=== PATIENT | male | born 1960 | race Caucasian/White ===

== ENCOUNTER 2017-06-16 08:56 | Day surgery (SDC) | payer OTHER ==
[~2017-06-16] VITALS: Ht 190.5 cm; Wt 93.1 kg
[~2017-06-16 08:56] MED LIST: ALBU90OI61; Depo-Testos200 MG/ML; MORP30ER PO; Omeprazole20 M1 PO; Symbicort 16010.2 GM; XYLOCAINE TOP
[2017-06-16] MEDS ORDERED: PANT40 PO (09:15)
[2017-12-12] MEDS ORDERED: PARO20 PO (13:58)
[2017-12-12] MEDS ORDERED: ALBU90OI INH (13:58)
[2017-12-12] MEDS ORDERED: Mobic7.5 MG PO (13:58)
== END 2017-06-16 11:03 | disposition home or self-care (01) ==
LOC: ORSCSDS 08:56
PROVIDERS: Internal Medicine Gastroenterology
PROC: 0DB68ZX Excision of Stomach, Via Natural or Artificial Opening Endoscopic, Diagnostic (ICD-10-PCS; principal; 2017-06-16 10:15)
PROC: 0DB58ZX Excision of Esophagus, Via Natural or Artificial Opening Endoscopic, Diagnostic (ICD-10-PCS; principal; 2017-06-16 10:15)
DX: K20.0 Eosinophilic esophagitis (principal); K22.10 Ulcer of esophagus without bleeding; K26.9 Duodenal ulcer, unspecified as acute or chronic, without hemorrhage or perforation; F17.220 Nicotine dependence, chewing tobacco, uncomplicated; J45.909 Unspecified asthma, uncomplicated; Z79.899 Other long term (current) drug therapy
CPT/HCPCS: 88305; 88312; 88341; 88342

== ENCOUNTER 2018-08-24 11:14 | Emergency (ER) | payer OTHER ==
[~2018-08-24] VITALS: Ht 182.9 cm; Wt 95.2 kg
[~2018-08-24 11:14] MED LIST changes: -ALBU90OI6 INH; -Augmentin 500-1 EACH PO; -BUSP15 PO; -DESL5 PO; -GABA300 PO; -PARO10 PO; -PARO30 PO; -Ventolin5 MG/1 ML INH
[2018-08-24 11:43] LABS: BASOPHILS ABSOLUTE AUTO 0.04 K/mm3 (0.00-0.23); BASOPHILS PERCENT AUTO 0 % (0-2); EOSINOPHILS ABSOLUTE AUTO 0.18 K/mm3 (0.00-0.68); EOSINOPHILS PERCENT AUTO 2 % (0-6); Hematocrit 34.9 % (37.0-53.0); Hemoglobin 11.4 g/dL (13.5-17.5); IMMATURE GRAN ABSOLUTE AUTO 0.03 K/mm3 (0.00-0.10); IMMATURE GRAN PERCENT AUTO 0 % (0-1); LYMPHOCYTES ABSOLUTE AUTO 0.66 K/mm3 (0.84-5.20); LYMPHOCYTES PERCENT AUTO 6 % (21-46); MONOCYTES ABSOLUTE AUTO 0.77 K/mm3 (0.16-1.47); MONOCYTES PERCENT AUTO 7 % (4-13); Mean Corpuscular HGB Conc 32.7 g/dL (31.5-36.5); Mean Corpuscular Volume 92 fL (80-100); Mean Platelet Volume 9.8 fL (9.1-12.4); NEUTROPHILS ABSOLUTE AUTO 9.98 K/mm3 (1.96-9.15); NEUTROPHILS PERCENT AUTO 86 % (41-73); Platelet Count 183 K/mm3 (150-400); RDW Standard Deviation 47.2 fL (35.1-46.3); White Blood Cell Count 11.66 K/mm3 (4.00-11.30)
[2018-08-24 12:09] LABS: Alanine Aminotransfer (ALT/SGP 29 U/L (12-78); Albumin, Blood 3.1 g/dL (3.4-5.0); Albumin/Globulin Ratio 0.9 (0.8-1.8); Alk Phos 62 U/L (50-136); Anion Gap 7 mmol/L (6-16); Aspartate Aminotrans (AST/SGOT 17 U/L (12-37); Bilirubin, Total 0.3 mg/dL (0.1-1.0); Blood Urea Nitrogen 29 mg/dL (8-24); Bun/Creatinine Ratio 26.1 (12.0-20.0); CO2, Blood 26 mmol/L (21-32); Calcium, Blood 8.2 mg/dL (8.5-10.1); Chloride, Blood 107 mmol/L (98-108); Creatinine, Blood 1.11 mg/dL (0.60-1.20); Globulin, Blood 3.4 g/dL (2.2-4.0); Glomerular Filtration Rate >60 (60-); Glucose, Blood 141 mg/dL (70-99); Potassium, Blood 4.6 mmol/L (3.5-5.5); Sodium, Blood 140 mmol/L (136-145); Total Protein, Blood 6.5 g/dL (6.4-8.2)
[2018-08-24] MEDS ORDERED: ALBU90OI6 INH (12:40)
[2018-08-24] MEDS ORDERED: Augmentin 500-1 EACH PO (12:40)
[2018-08-24] MEDS ORDERED: Ventolin5 MG/1 ML INH (12:46)
[2018-08-24] MEDS ORDERED: PARO10 PO (12:47)
[2018-08-24] MEDS ORDERED: BUSP15 PO (12:47)
[2018-08-24] MEDS ORDERED: GABA300 PO (12:48)
[2018-08-24] MEDS ORDERED: PARO30 PO (12:48)
[2018-08-24] MEDS ORDERED: PANT40 PO (12:48)
[2018-08-24] MEDS ORDERED: DESL5 PO (12:49)
== END 2018-08-24 13:00 | disposition home or self-care (01) ==
LOC: ER 11:14
PROVIDERS: Emergency Medicine
DX: J18.9 Pneumonia, unspecified organism (principal); Z88.5 Allergy status to narcotic agent; Z88.8 Allergy status to other drugs, medicaments and biological substances; Z79.899 Other long term (current) drug therapy; J45.909 Unspecified asthma, uncomplicated
CPT/HCPCS: 36415; 71046; 80053; 83605; 85025; 96374; 99284-25; J1885; J7030

== ENCOUNTER → 2018-08-24 | Outpatient (CLI) | payer OTHER ==
[~2018-08-24] MED LIST changes: +ALBU90OI INH; +ALBU90OI6 INH; +Augmentin 500-1 EACH PO; +BUSP15 PO; +DESL5 PO; +GABA300 PO; +Mobic7.5 MG PO; +PANT40 PO; +PARO10 PO; +PARO20 PO; +PARO30 PO; +Ventolin5 MG/1 ML INH
[2018-08-24 11:24] LABS: BASOPHILS ABSOLUTE AUTO 0.05 K/mm3 (0.00-0.23); BASOPHILS PERCENT AUTO 1 % (0-2); EOSINOPHILS ABSOLUTE AUTO 0.17 K/mm3 (0.00-0.68); EOSINOPHILS PERCENT AUTO 2 % (0-6); Hematocrit 37.4 % (37.0-53.0); IMMATURE GRAN ABSOLUTE AUTO 0.04 K/mm3 (0.00-0.10); IMMATURE GRAN PERCENT AUTO 0 % (0-1); LYMPHOCYTES ABSOLUTE AUTO 0.73 K/mm3 (0.84-5.20); LYMPHOCYTES PERCENT AUTO 7 % (21-46); MONOCYTES ABSOLUTE AUTO 0.58 K/mm3 (0.16-1.47); MONOCYTES PERCENT AUTO 5 % (4-13); Mean Corpuscular HGB 29.6 pg (26.0-34.0); Mean Corpuscular HGB Conc 32.1 g/dL (31.5-36.5); Mean Corpuscular Volume 92 fL (80-100); NEUTROPHILS ABSOLUTE AUTO 9.48 K/mm3 (1.96-9.15); NEUTROPHILS PERCENT AUTO 86 % (41-73); Platelet Count 216 K/mm3 (150-400); RDW Coefficient Variation 13.8 % (11.7-14.2); RDW Standard Deviation 46.8 fL (35.1-46.3); Red Blood Cell Count 4.06 M/mm3 (4.30-5.90); White Blood Cell Count 11.05 K/mm3 (4.00-11.30)
[2018-08-24 11:27] LABS: Alanine Aminotransfer (ALT/SGP 30 U/L (12-78); Albumin, Blood 3.3 g/dL (3.4-5.0); Albumin/Globulin Ratio 0.9 (0.8-1.8); Alk Phos 65 U/L (50-136); Anion Gap 3 mmol/L (6-16); Aspartate Aminotrans (AST/SGOT 23 U/L (12-37); Bilirubin, Direct <0.1 mg/dL (0.0-0.3); Bilirubin, Indirect Unable to Calculate mg/dL (0.1-0.7); Bilirubin, Total 0.3 mg/dL (0.1-1.0); Blood Urea Nitrogen 28 mg/dL (8-24); Bun/Creatinine Ratio 23.5 (12.0-20.0); CO2, Blood 31 mmol/L (21-32); Calcium, Blood 8.5 mg/dL (8.5-10.1); Chloride, Blood 105 mmol/L (98-108); Creatinine, Blood 1.19 mg/dL (0.60-1.20); Globulin, Blood 3.7 g/dL (2.2-4.0); Glomerular Filtration Rate >60 (60-); Glucose, Blood 122 mg/dL (70-99); Potassium, Blood 4.5 mmol/L (3.5-5.5); Sodium, Blood 139 mmol/L (136-145)
== END | disposition home or self-care (01) ==
LOC: LAB SHORT 10:45 → LAB 10:45
PROVIDERS: Nurse Practitioner
DX: R50.82 Postprocedural fever (principal); R25.1 Tremor, unspecified
CPT/HCPCS: 36415; 80053; 82248; 85025

== ENCOUNTER 2018-12-03 18:45 | Emergency (ER) | payer MEDICARE, OTHER ==
[~2018-12-03] VITALS: Ht 190.5 cm; Wt 90.7 kg
[~2018-12-03 18:45] MED LIST changes: +ALBU90OI6 INH; +Augmentin 500-1 EACH PO; +BUSP15 PO; +DESL5 PO; +GABA300 PO; +PARO10 PO; +PARO30 PO; +Ventolin5 MG/1 ML INH
[2018-12-03 19:47] LABS: BASOPHILS ABSOLUTE AUTO 0.14 K/mm3 (0.00-0.23); BASOPHILS PERCENT AUTO 1 % (0-2); EOSINOPHILS ABSOLUTE AUTO 0.58 K/mm3 (0.00-0.68); EOSINOPHILS PERCENT AUTO 5 % (0-6); Hematocrit 41.4 % (37.0-53.0); Hemoglobin 13.6 g/dL (13.5-17.5); IMMATURE GRAN ABSOLUTE AUTO 0.03 K/mm3 (0.00-0.10); IMMATURE GRAN PERCENT AUTO 0 % (0-1); LYMPHOCYTES ABSOLUTE AUTO 4.14 K/mm3 (0.84-5.20); LYMPHOCYTES PERCENT AUTO 39 % (21-46); MONOCYTES ABSOLUTE AUTO 0.83 K/mm3 (0.16-1.47); MONOCYTES PERCENT AUTO 8 % (4-13); Mean Corpuscular HGB 29.6 pg (26.0-34.0); Mean Corpuscular HGB Conc 32.9 g/dL (31.5-36.5); Mean Corpuscular Volume 90 fL (80-100); Mean Platelet Volume 10.2 fL (9.1-12.4); NEUTROPHILS ABSOLUTE AUTO 4.97 K/mm3 (1.96-9.15); NEUTROPHILS PERCENT AUTO 47 % (41-73); Platelet Count 324 K/mm3 (150-400); RDW Coefficient Variation 14.6 % (11.7-14.2); Red Blood Cell Count 4.59 M/mm3 (4.30-5.90); White Blood Cell Count 10.69 K/mm3 (4.00-11.30)
[2018-12-03 20:02] LABS: Alanine Aminotransfer (ALT/SGP 28 U/L (12-78); Albumin, Blood 3.8 g/dL (3.4-5.0); Albumin/Globulin Ratio 0.9 (0.8-1.8); Alk Phos 69 U/L (50-136); Anion Gap 4 mmol/L (6-16); Aspartate Aminotrans (AST/SGOT 20 U/L (12-37); Bilirubin, Total 0.4 mg/dL (0.1-1.0); Blood Urea Nitrogen 17 mg/dL (8-24); Bun/Creatinine Ratio 15.6 (12.0-20.0); CO2, Blood 30 mmol/L (21-32); Calcium, Blood 9.3 mg/dL (8.5-10.1); Chloride, Blood 106 mmol/L (98-108); Creatinine, Blood 1.09 mg/dL (0.60-1.20); Globulin, Blood 4.2 g/dL (2.2-4.0); Glomerular Filtration Rate >60 (60-); Glucose, Blood 105 mg/dL (70-99); Potassium, Blood 3.8 mmol/L (3.5-5.5); Sodium, Blood 140 mmol/L (136-145); Troponin I 0.022 ng/mL (0.000-0.040)
== END 2018-12-03 21:11 | disposition home or self-care (01) ==
LOC: ER 18:45
PROVIDERS: Emergency Medicine
DX: R07.2 Precordial pain (principal); J45.909 Unspecified asthma, uncomplicated; Z79.899 Other long term (current) drug therapy
CPT/HCPCS: 71045; 80053; 83690; 84484; 85025; 93005; 93010; 96361; 96374; 96375; 99284-25; C9113; J2405; J3010; J7030

== ENCOUNTER 2018-12-05 08:32 | Day surgery (SDC) | payer MEDICARE, OTHER ==
[~2018-12-05] VITALS: Ht 188 cm; Wt 95.3 kg
[2018-12-05] MEDS ORDERED: BUDE6HFA (14:23)
[2018-12-05] MEDS ORDERED: BUDE6HFA INH (14:24)
== END 2018-12-05 15:33 | disposition home or self-care (01) ==
LOC: ORSCSDS 08:32
PROVIDERS: Internal Medicine Gastroenterology
PROC: 0DB58ZX Excision of Esophagus, Via Natural or Artificial Opening Endoscopic, Diagnostic (ICD-10-PCS; principal; 2018-12-05 09:45)
PROC: 0D758ZZ Dilation of Esophagus, Via Natural or Artificial Opening Endoscopic (ICD-10-PCS; principal; 2018-12-05 09:45)
DX: K20.0 Eosinophilic esophagitis (principal); R13.14 Dysphagia, pharyngoesophageal phase; K22.2 Esophageal obstruction; K44.9 Diaphragmatic hernia without obstruction or gangrene; J45.909 Unspecified asthma, uncomplicated; F17.210 Nicotine dependence, cigarettes, uncomplicated; Z79.899 Other long term (current) drug therapy
CPT/HCPCS: 88305; 88312; C1726; J2704; J2765; J7120

== ENCOUNTER 2019-04-08 12:28 | Day surgery (SDC) | payer OTHER ==
[~2019-04-08] VITALS: Ht 190.5 cm; Wt 97.1 kg
[~2019-04-08 12:28] MED LIST changes: +BUDE6HFA; +BUDE6HFA INH; -BUSP15 PO; +BUSP5 PO; +GABA800 PO
--- NOTE | 2019-04-08 13:28 | NUR ---
04/08/19 1328 Lisa Fitzpatrick PT UPDATED ON DELAY. RESTING COMFORTABLY IN BED. DENIES NEEDS AT THIS TIME, CALL LIGHT WITHIN REACH.
== END 2019-04-08 14:05 | disposition home or self-care (01) ==
LOC: ORSCSDS 12:28
PROVIDERS: Internal Medicine Gastroenterology
PROC: 0DB58ZX Excision of Esophagus, Via Natural or Artificial Opening Endoscopic, Diagnostic (ICD-10-PCS; principal; 2019-04-08 13:45)
DX: K20.0 Eosinophilic esophagitis (principal); K44.9 Diaphragmatic hernia without obstruction or gangrene; Z87.11 Personal history of peptic ulcer disease; F41.8 Other specified anxiety disorders; J45.909 Unspecified asthma, uncomplicated; F43.10 Post-traumatic stress disorder, unspecified; Z87.891 Personal history of nicotine dependence; Z79.899 Other long term (current) drug therapy
CPT/HCPCS: 88305; J2704; J7120

== ENCOUNTER 2019-04-24 06:07 | Day surgery (SDC) | payer OTHER ==
[~2019-04-24] VITALS: Ht 190.5 cm; Wt 98.7 kg
--- NOTE | 2019-04-24 06:35 | NUR ---
Ambulatory in Day Surgery History, Chart, Medications and Allergies reviewed before start of procedure.Lungs clear T/O to Auscultation. Patient confirms NPO status and agrees with scheduled surgery. Patient reports completing Chlorhexadine shower X2 prior to admission to hospital.Surgical site prepped with 2% Chlorhexidine cloth wipe.
--- NOTE | 2019-04-24 17:05 | NUR ---
SHIFT SUMMARY PT HAS DONE WELL POSTOPERATIVELY. PAIN WELL MANAGED, TOLERATING DIET (REQUIRED TO BE A FEEDER DUE TO TREMORS), WORKED WITH THERAPY, VOIDING. PT PLEASANT AND COOPERATIVE ONLY C/O ITCHY NOSE. LOTION APPLED.
--- NOTE | 2019-04-24 19:28 | NUR ---
URINE OUT PUT PT HAS VOIDED x 2. UNABLE TO USE URINAL DUE TO TREMORS. HAT PLACED IN TOILET.
[2019-04-25 04:23] LABS: BASOPHILS ABSOLUTE AUTO 0.02 K/mm3 (0.00-0.23); BASOPHILS PERCENT AUTO 0 % (0-2); EOSINOPHILS PERCENT AUTO 0 % (0-6); Hematocrit 31.4 % (37.0-53.0); IMMATURE GRAN ABSOLUTE AUTO 0.06 K/mm3 (0.00-0.10); IMMATURE GRAN PERCENT AUTO 0 % (0-1); LYMPHOCYTES ABSOLUTE AUTO 0.93 K/mm3 (0.84-5.20); LYMPHOCYTES PERCENT AUTO 6 % (21-46); MONOCYTES ABSOLUTE AUTO 0.98 K/mm3 (0.16-1.47); MONOCYTES PERCENT AUTO 7 % (4-13); Mean Corpuscular HGB 29.4 pg (26.0-34.0); Mean Corpuscular HGB Conc 31.8 g/dL (31.5-36.5); Mean Corpuscular Volume 92 fL (80-100); Mean Platelet Volume 10.3 fL (9.1-12.4); NEUTROPHILS ABSOLUTE AUTO 12.59 K/mm3 (1.96-9.15); NEUTROPHILS PERCENT AUTO 86 % (41-73); Platelet Count 198 K/mm3 (150-400); RDW Standard Deviation 47.3 fL (35.1-46.3); White Blood Cell Count 14.58 K/mm3 (4.00-11.30)
[2019-04-25 04:39] LABS: Anion Gap 4 mmol/L (6-16); Blood Urea Nitrogen 22 mg/dL (8-24); Bun/Creatinine Ratio 21.2 (12.0-20.0); CO2, Blood 28 mmol/L (21-32); Calcium, Blood 8.4 mg/dL (8.5-10.1); Chloride, Blood 105 mmol/L (98-108); Creatinine, Blood 1.04 mg/dL (0.60-1.20); Glomerular Filtration Rate >60 (60-); Glucose, Blood 156 mg/dL (70-99); Magnesium, Blood 1.9 mg/dL (1.6-2.4); Potassium, Blood 4.5 mmol/L (3.5-5.5); Sodium, Blood 137 mmol/L (136-145)
--- NOTE | 2019-04-25 06:25 | NUR ---
SHIFT SUMMARY LYING IN SEMI FOWLERS WITH EYES CLOSED. HAS RESTED WELL IN THE CHAIR THIS SHIFT. MOVED TO BED AFTER GOING TO BATHROOM AND AMBULATING BACK TO CHAIR. PAIN WELL MANAGED WITH SCHEDULED AND PRN PAIN MEASURES. IVF SL AFTER 0300 ABX, TOLERATING PO WELL AND MAKING ADEQUATE URINE. DENIES FURTHER NEEDS OR WANTS AT THIS TIME. SAFETY MEASURES IN PLACE. WILL GIVE HAND OFF TO ONCOMING SHIFT USING SBAR.
[2019-04-25] MEDS ORDERED: ENOX40I SC (12:45)
[2019-04-25] MEDS ORDERED: OXYC5 PO (12:46)
--- NOTE | 2019-04-25 12:48 | NUR ---
OOB TO CHAIR, NAUSEA/VOMITTING BETTER AFTER REGLAN GIVEN THIS AM, REPORTS PAIN IS BETTER WITH 1 NORCO AND NO NAUSEA AFTER, WAITING FOR DR. HARP TO CHANGE RX FOR HOME TO NORCO INSTEAD OF OXYCODONE.
--- NOTE | 2019-04-25 14:38 | NUR ---
DISCHARGE PT PROVIDED WITH WRITTEN AND VERBAL DISCHARGE INSTRUCTIONS. PT AND FAMILY REPORTED UNDERSTANDING INSTRUCTIONS. DRESSINGS PROVIDED. PT REPORTED HE HAS ALL PRESCRIPTIONS AT HOME. PT ESCORTED OUT IN W/C AND ASSISTED INTO THE VEHICLE.
== END 2019-04-25 14:36 | disposition home or self-care (01) ==
LOC: ORSCMMR 06:07 → SURS 11:00 → ORSCMMR 15:15
PROVIDERS: Orthopaedic Surgery
PROC: 8E0YXBZ Computer Assisted Procedure of Lower Extremity (ICD-10-PCS; principal; 2019-04-24 07:30)
PROC: 0SRC0J9 Replacement of Right Knee Joint with Synthetic Substitute, Cemented, Open Approach (ICD-10-PCS; principal; 2019-04-24 07:30)
DX: M17.11 Unilateral primary osteoarthritis, right knee (principal); J45.909 Unspecified asthma, uncomplicated; G25.0 Essential tremor; F33.9 Major depressive disorder, recurrent, unspecified; F43.12 Post-traumatic stress disorder, chronic; Z79.899 Other long term (current) drug therapy
CPT/HCPCS: 36415; 73560-RT; 80048; 83735; 85025; 88300; 94640; 94760; 97110; 97116; 97162; 97530; A9270-GY; C1713; C1776; J0171; J0690; J0735; J1100; J1650; J1885; J2250; J2405; J2704; J2795; J3010; J7120

== ENCOUNTER → 2020-03-28 | Outpatient (CLI) | payer OTHER ==
[~2020-03-28] MED LIST changes: +ENOX40I SC; +OXYC5 PO
[2020-03-28 11:20] LABS: BASOPHILS ABSOLUTE AUTO 0.09 K/mm3 (0.00-0.23); BASOPHILS PERCENT AUTO 2 % (0-2); EOSINOPHILS ABSOLUTE AUTO 0.46 K/mm3 (0.00-0.68); EOSINOPHILS PERCENT AUTO 10 % (0-6); Hematocrit 42.2 % (37.0-53.0); Hemoglobin 13.5 g/dL (13.5-17.5); IMMATURE GRAN ABSOLUTE AUTO 0.01 K/mm3 (0.00-0.10); IMMATURE GRAN PERCENT AUTO 0 % (0-1); LYMPHOCYTES ABSOLUTE AUTO 1.39 K/mm3 (0.84-5.20); LYMPHOCYTES PERCENT AUTO 31 % (21-46); MONOCYTES ABSOLUTE AUTO 0.49 K/mm3 (0.16-1.47); MONOCYTES PERCENT AUTO 11 % (4-13); Mean Corpuscular HGB 28.2 pg (26.0-34.0); Mean Corpuscular Volume 88 fL (80-100); Mean Platelet Volume 10.1 fL (9.1-12.4); NEUTROPHILS ABSOLUTE AUTO 2.11 K/mm3 (1.96-9.15); NEUTROPHILS PERCENT AUTO 46 % (41-73); Platelet Count 269 K/mm3 (150-400); RDW Coefficient Variation 14.7 % (11.7-14.2); RDW Standard Deviation 46.9 fL (35.1-46.3); Red Blood Cell Count 4.78 M/mm3 (4.30-5.90); White Blood Cell Count 4.55 K/mm3 (4.00-11.30)
[2020-03-28 11:27] LABS: Alanine Aminotransfer (ALT/SGP 30 U/L (12-78); Albumin, Blood 3.7 g/dL (3.4-5.0); Alk Phos 122 U/L (50-136); Anion Gap 6 mmol/L (6-16); Aspartate Aminotrans (AST/SGOT 20 U/L (12-37); Bilirubin, Total 0.3 mg/dL (0.1-1.0); Blood Urea Nitrogen 21 mg/dL (8-24); Bun/Creatinine Ratio 22.2 (12.0-20.0); CO2, Blood 29 mmol/L (21-32); Calcium, Blood 9.2 mg/dL (8.5-10.1); Chloride, Blood 106 mmol/L (98-108); Creatinine, Blood 0.95 mg/dL (0.60-1.20); Globulin, Blood 3.7 g/dL (2.2-4.0); Glomerular Filtration Rate >60 (60-); Glucose, Blood 129 mg/dL (70-99); Sodium, Blood 141 mmol/L (136-145); Total Protein, Blood 7.4 g/dL (6.4-8.2)
== END | disposition home or self-care (01) ==
LOC: LAB SHORT 10:30 → PLD 10:30
PROVIDERS: Family Medicine
DX: M79.89 Other specified soft tissue disorders (principal); M79.676 Pain in unspecified toe(s)
CPT/HCPCS: 80053; 85025; 85379

== ENCOUNTER 2020-06-29 20:15 | Emergency (ER) | payer OTHER ==
[~2020-06-29] VITALS: Ht 190.5 cm; Wt 99.3 kg
[2020-06-29 20:51] LABS: BASOPHILS ABSOLUTE AUTO 0.11 K/mm3 (0.00-0.23); BASOPHILS PERCENT AUTO 1 % (0-2); EOSINOPHILS ABSOLUTE AUTO 0.38 K/mm3 (0.00-0.68); EOSINOPHILS PERCENT AUTO 3 % (0-6); Hematocrit 47.2 % (37.0-53.0); Hemoglobin 15.2 g/dL (13.5-17.5); IMMATURE GRAN ABSOLUTE AUTO 0.04 K/mm3 (0.00-0.10); IMMATURE GRAN PERCENT AUTO 0 % (0-1); LYMPHOCYTES ABSOLUTE AUTO 1.64 K/mm3 (0.84-5.20); LYMPHOCYTES PERCENT AUTO 12 % (21-46); MONOCYTES ABSOLUTE AUTO 0.96 K/mm3 (0.16-1.47); MONOCYTES PERCENT AUTO 7 % (4-13); Mean Corpuscular HGB 27.6 pg (26.0-34.0); Mean Corpuscular HGB Conc 32.2 g/dL (31.5-36.5); Mean Corpuscular Volume 86 fL (80-100); Mean Platelet Volume 10.2 fL (9.1-12.4); NEUTROPHILS ABSOLUTE AUTO 10.95 K/mm3 (1.96-9.15); NEUTROPHILS PERCENT AUTO 78 % (41-73); Platelet Count 365 K/mm3 (150-400); RDW Coefficient Variation 14.9 % (11.7-14.2); RDW Standard Deviation 46.9 fL (35.1-46.3); White Blood Cell Count 14.08 K/mm3 (4.00-11.30)
[2020-06-29 21:07] LABS: Alanine Aminotransfer (ALT/SGP 33 U/L (12-78); Albumin, Blood 4.2 g/dL (3.4-5.0); Albumin/Globulin Ratio 0.9 (0.8-1.8); Alk Phos 109 U/L (50-136); Anion Gap 3 mmol/L (6-16); Aspartate Aminotrans (AST/SGOT 18 U/L (12-37); Bilirubin, Total 0.3 mg/dL (0.1-1.0); Blood Urea Nitrogen 24 mg/dL (8-24); Bun/Creatinine Ratio 20.3 (12.0-20.0); CO2, Blood 31 mmol/L (21-32); Calcium, Blood 10.2 mg/dL (8.5-10.1); Chloride, Blood 103 mmol/L (98-108); Creatinine, Blood 1.18 mg/dL (0.60-1.20); Globulin, Blood 4.6 g/dL (2.2-4.0); Glomerular Filtration Rate >60 (60-); Glucose, Blood 171 mg/dL (70-99); Potassium, Blood 4.2 mmol/L (3.5-5.5); Sodium, Blood 137 mmol/L (136-145); Total Protein, Blood 8.8 g/dL (6.4-8.2)
[2020-06-29] MEDS ORDERED: ONDA4ODT MM (23:26)
== END 2020-06-30 00:20 | disposition home or self-care (01) ==
LOC: ER 20:15
PROVIDERS: Physician Assistant
DX: K52.9 Noninfective gastroenteritis and colitis, unspecified (principal); K21.9 Gastro-esophageal reflux disease without esophagitis; J44.9 Chronic obstructive pulmonary disease, unspecified; Z79.51 Long term (current) use of inhaled steroids; Z88.5 Allergy status to narcotic agent; Z88.8 Allergy status to other drugs, medicaments and biological substances
CPT/HCPCS: 36415; 80053; 83690; 85025; 96361; 96374; 99283-25; J2405; J7030

== ENCOUNTER → 2022-08-29 | Outpatient (CLI) | payer OTHER ==
[~2022-08-29] MED LIST changes: +ONDA4ODT MM
[2022-08-29 18:47] LABS: CHOL/HDL RATIO 5.2; Cholesterol 207 mg/dL (50-200); HDL Cholesterol 40 mg/dL (>39); LDL/HDL RATIO Unable to Calculate; Low Density Lipoprotein Chol Unable to Calculate mg/dL (0-110); Triglycerides 479 mg/dL (30-160); Very Low Density Lipoprot Chol Unable to Calculate mg/dL (6-32)
== END | disposition home or self-care (01) ==
LOC: LAB SHORT 16:47
PROVIDERS: Nurse Practitioner Family
DX: E66.9 Obesity, unspecified (principal); Z68.26 Body mass index [BMI] 26.0-26.9, adult
CPT/HCPCS: 80061

== ENCOUNTER 2023-01-09 13:07 | Emergency (ER) | payer OTHER ==
[~2023-01-09] VITALS: Ht 190.5 cm; Wt 95.7 kg
[2023-01-09] MEDS ORDERED: Cyclobenzaprine5 MG PO (15:52)
[2023-01-09] MEDS ORDERED: Miralax17 GM PO (15:52)
[2023-01-09] MEDS ORDERED: Percocet 5-3251 EACH PO (15:52)
[2023-01-09 16:02] VITALS: BP 132/75
== END 2023-01-09 16:03 | disposition home or self-care (01) ==
LOC: ER 13:07
DX: M54.50 Low back pain, unspecified (principal); R20.2 Paresthesia of skin; M17.12 Unilateral primary osteoarthritis, left knee; Z88.8 Allergy status to other drugs, medicaments and biological substances; Z88.5 Allergy status to narcotic agent; Z79.899 Other long term (current) drug therapy; J44.9 Chronic obstructive pulmonary disease, unspecified; K21.9 Gastro-esophageal reflux disease without esophagitis
CPT/HCPCS: 96372; 99283-25; A9270; J1170

== ENCOUNTER 2023-03-01 08:35 | Day surgery (SDC) | payer OTHER ==
[~2023-03-01] VITALS: Ht 190.5 cm; Wt 96.2 kg
[2023-03-01] VITALS (19 sets, daily range): BP systolic 84–119; BP diastolic 58–86
[~2023-03-01 08:35] MED LIST changes: +Cyclobenzaprine5 MG PO; +GABA400 PO; -GABA800 PO; +Miralax17 GM PO; +Percocet 5-3251 EACH PO; +TESTOSTERONE75 GM TOP
--- NOTE | 2023-03-01 09:27 | NUR ---
Ambulatory in Day SurgeryPre-Op teaching done. Pt verbalizes understanding. History, Chart, Medications and Allergies reviewed before start of procedure.Patient confirms NPO status and agrees with scheduled surgery.
--- NOTE | 2023-03-01 10:52 | NUR ---
03/01/23 1052 Dawn Fontana PATIENT HAS LEFT CHEST BRAIN STIMULATOR IMPLANTED, AND REMAIN ONS DURING PROCEDURE. PER NO BOVIE CAUTERY INSTRUMENT USED DURING PROCEDURE DUE TO BEING MONOPOLAR, INSTEAD AQUAMANTYS BIPOLAR INTRUMENT IS USED.
--- NOTE | 2023-03-01 13:59 | NUR ---
PATIENT ARRIVED FROM PACU TODAY AT 1300. POD 0 LEFT TOTAL KNEE PATIENT IS A&OX4. VS ARE WNL. HIS LEFT KNEE HAS AN MAKENNA WRAP WITH GAUZE THAT IS C/D/I. HE DENIES NUMBNESS OR TINGLING. CAN MOVE ALL FINGER AND TOES WHEN ASKED. POLAR PACK IN PLACE ON LEFT KNEE. HE IS LAYING IN BED WITH CALL LIGHT IN REACH TOLERATING SMALL AMOUNTS OF PO INTAKE.
--- NOTE | 2023-03-01 15:22 | NUR ---
SHIFT SUMMARY: POD 0 LEFT TOTAL KNEE PATIENT IS A&OX4. VS ARE WNL AND IS ON RA. PAIN IS MANAGED WITH PO OXY AND IV DILAUDID AT THIS TIME. HIS LEFT KNEE HAS AN MAKENNA WRAP WITH GAUZE THAT IS C/D/I. HE DENIES NUMBNESS OR TINGLING IN ALL EXTREMITIES. PATIENT IS TOLERATING PO INTAKE AND DENIES NAUSEA/VOMITING. HE IS LAYING IN BED WITH CALL LIGHT IN REACH.
[2023-03-02 03:41] VITALS: BP 113/53
--- NOTE | 2023-03-02 04:47 | NUR ---
SHIFT SUMMARY POD 1 L TKA PT RESTED T/O NIGHT. PT UP TO THE BATHROOM, VOIDED. UP IN THE CHAIR THIS MORNING. PAIN MANAGED PER EMAR. DENIES ANY N/V. PT HAS ESSENTAIL TREMORS AT BASLINE. PT HYPOTENSIVE DURING NIGHT, STATES THIS IS NORMAL FOR HIM. FLUIDS RUNNING DURING NIGHT TO HELP INCREASE BP. DRESSING TO L KNEE C/D/I, POLAR PAC IN PLACE. PLAN FOR DISCHARGE TODAY. NO OTHER CONCERNS AT THIS TIME. CALL LIGHT WITHIN REACH.
[2023-03-02 04:56] LABS: BASOPHILS PERCENT AUTO 1 % (0-2); EOSINOPHILS ABSOLUTE AUTO 0.52 K/mm3 (0.00-0.68); EOSINOPHILS PERCENT AUTO 5 % (0-6); Hematocrit 35.5 % (37.0-53.0); Hemoglobin 11.5 g/dL (13.5-17.5); IMMATURE GRAN ABSOLUTE AUTO 0.04 K/mm3 (0.00-0.10); IMMATURE GRAN PERCENT AUTO 0 % (0-1); LYMPHOCYTES ABSOLUTE AUTO 1.32 K/mm3 (0.84-5.20); LYMPHOCYTES PERCENT AUTO 12 % (21-46); MONOCYTES ABSOLUTE AUTO 0.93 K/mm3 (0.16-1.47); MONOCYTES PERCENT AUTO 8 % (4-13); Mean Corpuscular HGB 29.8 pg (26.0-34.0); Mean Corpuscular HGB Conc 32.4 g/dL (31.5-36.5); Mean Corpuscular Volume 92 fL (80-100); Mean Platelet Volume 9.9 fL (9.1-12.4); NEUTROPHILS ABSOLUTE AUTO 8.33 K/mm3 (1.96-9.15); NEUTROPHILS PERCENT AUTO 74 % (41-73); Platelet Count 264 K/mm3 (150-400); RDW Standard Deviation 43.8 fL (35.1-46.3); Red Blood Cell Count 3.86 M/mm3 (4.30-5.90); White Blood Cell Count 11.24 K/mm3 (4.00-11.30)
[2023-03-02 05:30] LABS: Bun/Creatinine Ratio 19.7 (12.0-20.0); Calcium, Blood 8.5 mg/dL (8.5-10.1); Creatinine, Blood 1.32 mg/dL (0.60-1.20); Magnesium, Blood 2.2 mg/dL (1.6-2.4); Potassium, Blood 4.1 mmol/L (3.5-5.5)
[2023-03-02 07:12] VITALS: BP 100/63
--- NOTE | 2023-03-02 13:39 | NUR ---
DISCHARGE SUMMARY POD1 L TKA, A/OX4, VSS, TOLERATING PO, PAIN WELL MANAGED PER EMAR, DRESSINGS CHANGED THIS AM BY ORTHO AT BEDSIDE WITH INCISION CARE INFROMATION PROVIDED. DISCUSSED DC INFORMATION WITH THE PATIENT INCLUDING HOME CARE, MEDCIATIONS, AND FOLLOW UP APPOINTMENTS. NO QUESTIONS AT THIS TIME, IV ACCESS REMOVED PRIOR TO DC. PT ESCORTED OTU VIA WC TO PRIVATE AUTO TO GO HOME.
== END 2023-03-02 14:11 | disposition home or self-care (01) ==
LOC: ORSCMMR 08:35 → ORD 10:45 → ORSCMMR 10:45 → SURS 13:30 → ORSCMMR 03-02 14:11
PROVIDERS: Orthopaedic Surgery
PROC: 0SRD0JA Replacement of Left Knee Joint with Synthetic Substitute, Uncemented, Open Approach (ICD-10-PCS; principal; 2023-03-01 10:45)
DX: M17.12 Unilateral primary osteoarthritis, left knee (principal); Z96.651 Presence of right artificial knee joint; Q98.4 Klinefelter syndrome, unspecified; J45.909 Unspecified asthma, uncomplicated; K21.9 Gastro-esophageal reflux disease without esophagitis; F32.A Depression, unspecified; F43.12 Post-traumatic stress disorder, chronic; Z79.899 Other long term (current) drug therapy; Z87.891 Personal history of nicotine dependence
CPT/HCPCS: 36415; 73560-LT; 80048; 83735; 85025; 97110; 97116; 97162; A9270; C1713; C1776; J0171; J0690; J0735; J1170; J1885; J2250; J2704; J2795; J3010; J3370; J7120

== ENCOUNTER 2023-03-03 12:05 | Emergency (ER) | payer OTHER ==
[~2023-03-03] VITALS: Ht 190.5 cm; Wt 94.3 kg
[2023-03-03 12:10] VITALS: BP 107/79
== END 2023-03-03 14:00 | disposition home or self-care (01) ==
LOC: ER 12:05
DX: T18.128A Food in esophagus causing other injury, initial encounter (principal); Z88.5 Allergy status to narcotic agent; Z91.048 Other nonmedicinal substance allergy status; Z79.899 Other long term (current) drug therapy; J44.9 Chronic obstructive pulmonary disease, unspecified; K21.9 Gastro-esophageal reflux disease without esophagitis
CPT/HCPCS: 99283

== ENCOUNTER 2023-05-24 08:01 | Day surgery (SDC) | payer OTHER ==
[~2023-05-24] VITALS: Ht 190.5 cm; Wt 92.8 kg
[~2023-05-24 08:01] MED LIST changes: +CALCIUM 500-VI1 EAC4 PO; -GABA400 PO; +IPRAT-ALBUT 0.5-3 ML NEB; +NEURONTIN600 MG PO; -PARO30 PO; +PROTONIX4010 PO; +TESTOSTERONE TD; -TESTOSTERONE75 GM TOP
[2023-05-24] MEDS ORDERED: SYMBICORT 160-4.6 GM (08:25)
[2023-05-24 10:33] VITALS: BP 121/80
== END 2023-05-24 10:22 | disposition home or self-care (01) ==
LOC: ORSCSDS 08:01
PROVIDERS: Specialist
PROC: 0DB58ZX Excision of Esophagus, Via Natural or Artificial Opening Endoscopic, Diagnostic (ICD-10-PCS; principal; 2023-05-24 09:15)
DX: R13.10 Dysphagia, unspecified (principal); K22.10 Ulcer of esophagus without bleeding; K64.4 Residual hemorrhoidal skin tags; I73.9 Peripheral vascular disease, unspecified; F43.10 Post-traumatic stress disorder, unspecified; Z79.899 Other long term (current) drug therapy
CPT/HCPCS: 88305; J2704; J7120

== ENCOUNTER 2024-05-15 09:05 | Day surgery (SDC) | payer OTHER ==
[~2024-05-15] VITALS: Ht 190.5 cm; Wt 101.0 kg
[~2024-05-15 09:05] MED LIST changes: +FLUT1DIS5; +Lactated Ringer's 1,000 ML IV ONE; +Norco 5-325 Ta1 EACH PO; +SYMBICORT 160-4.6 GM; +propofoL 50 ML IV ONE
[2024-05-15] MEDS ORDERED: Lactated Ringer's 1,000 ML IV ONE (09:31)
[2024-05-15] MEDS ORDERED: SERT50 PO (09:33)
[2024-05-15 11:16] VITALS: BP 105/84
== END 2024-05-15 11:19 | disposition home or self-care (01) ==
LOC: ORSCSDS 09:05
PROVIDERS: Internal Medicine Gastroenterology
PROC: 0DB58ZX Excision of Esophagus, Via Natural or Artificial Opening Endoscopic, Diagnostic (ICD-10-PCS; principal; 2024-05-15 10:30)
DX: K20.90 Esophagitis, unspecified without bleeding (principal); R13.10 Dysphagia, unspecified; F41.9 Anxiety disorder, unspecified; Z79.899 Other long term (current) drug therapy
CPT/HCPCS: 88305; J2704; J7120

== ENCOUNTER 2024-07-04 14:01 | Emergency (ER) | payer OTHER ==
[~2024-07-04] VITALS: Ht 190.5 cm; Wt 99.8 kg
[~2024-07-04 14:01] MED LIST changes: -Lactated Ringer's 1,000 ML IV ONE; +SERT50 PO; -propofoL 50 ML IV ONE
[2024-07-04 15:31] LABS: BASOPHILS ABSOLUTE AUTO 0.06 K/mm3 (0.00-0.23); BASOPHILS PERCENT AUTO 1 % (0-2); EOSINOPHILS ABSOLUTE AUTO 0.15 K/mm3 (0.00-0.68); EOSINOPHILS PERCENT AUTO 2 % (0-6); Hematocrit 41.4 % (37.0-53.0); Hemoglobin 13.8 g/dL (13.5-17.5); IMMATURE GRAN ABSOLUTE AUTO 0.04 K/mm3 (0.00-0.10); IMMATURE GRAN PERCENT AUTO 0 % (0-1); LYMPHOCYTES ABSOLUTE AUTO 1.51 K/mm3 (0.84-5.20); LYMPHOCYTES PERCENT AUTO 15 % (21-46); MONOCYTES ABSOLUTE AUTO 0.77 K/mm3 (0.16-1.47); MONOCYTES PERCENT AUTO 8 % (4-13); Mean Corpuscular HGB 29.7 pg (26.0-34.0); Mean Corpuscular HGB Conc 33.3 g/dL (31.5-36.5); Mean Corpuscular Volume 89 fL (80-100); Mean Platelet Volume 9.7 fL (9.1-12.4); NEUTROPHILS ABSOLUTE AUTO 7.45 K/mm3 (1.96-9.15); NEUTROPHILS PERCENT AUTO 75 % (41-73); Platelet Count 230 K/mm3 (150-400); RDW Coefficient Variation 13.6 % (11.7-14.2); RDW Standard Deviation 44.5 fL (35.1-46.3); Red Blood Cell Count 4.65 M/mm3 (4.30-5.90); White Blood Cell Count 9.98 K/mm3 (4.00-11.30)
[2024-07-04 15:58] LABS: Albumin, Blood 3.7 g/dL (3.4-5.0); Albumin/Globulin Ratio 0.9 (0.8-1.8); Bilirubin, Total 0.2 mg/dL (0.1-1.0); Bun/Creatinine Ratio 25.7 (12.0-20.0); Calcium, Blood 9.3 mg/dL (8.5-10.1); Creatinine, Blood 1.05 mg/dL (0.60-1.20); Potassium, Blood 4.6 mmol/L (3.5-5.5); Total Protein, Blood 7.7 g/dL (6.4-8.2)
[2024-07-04] MEDS ORDERED: NS 1,000 ML IV SCH (17:00)
[2024-07-04 17:30] VITALS: BP 120/77
== END 2024-07-04 19:12 | disposition home or self-care (01) ==
LOC: ER 14:01
PROVIDERS: Emergency Medicine
DX: R55 Syncope and collapse (principal); J44.9 Chronic obstructive pulmonary disease, unspecified; K21.9 Gastro-esophageal reflux disease without esophagitis; R73.03 Prediabetes; E78.1 Pure hyperglyceridemia; Z91.013 Allergy to seafood; Z88.0 Allergy status to penicillin; Z88.1 Allergy status to other antibiotic agents; Z91.018 Allergy to other foods; Z91.048 Other nonmedicinal substance allergy status; Z79.899 Other long term (current) drug therapy
CPT/HCPCS: 36415; 71046; 80053; 80061; 83036; 83690; 84403; 84484; 85014; 85018; 85025; 93005; 93010; 99284-25; J7030

== ENCOUNTER 2025-04-14 13:21 | Emergency (ER) | payer OTHER ==
[~2025-04-14] VITALS: Ht 190.5 cm; Wt 103.4 kg
[2025-04-14 13:59] VITALS: BP 138/94
[2025-04-14] MEDS ORDERED: Lidocaine 2% Viscous Soln 15 ML UDC PO ONE (14:05)
[2025-04-14] MEDS ORDERED: Xylocaine5 M1 PO (14:22)
== END 2025-04-14 14:24 | disposition home or self-care (01) ==
LOC: ER 13:21
DX: K21.9 Gastro-esophageal reflux disease without esophagitis (principal); J44.89 Other specified chronic obstructive pulmonary disease
CPT/HCPCS: 99283; A9270